=== PATIENT | male | born 1965 | race Caucasian/White ===

== ENCOUNTER 2018-02-23 13:57 | Outpatient (CLI) | payer BC ==
--- NOTE | 2018-02-23 16:03 | ULT ---
TESTICULAR ULTRASOUND: HISTORY: Testicular mass. TECHNIQUE: Real-time imaging of the right and left testes was performed. FINDINGS: The right testicle measures 3.6 and the left testicle 3.6 cm in length. There is a 3 mm cyst identif ied in the right testicle. Small bilateral hydroceles are present. The left epididymis is unremarkable in appearance. There is a large right epididymal cyst, measuring 1.7 x 2.2 cm. DOPPLER EVALUATION WITH SPECTRAL ANALYSIS Normal flow is shown to both testes and epididymal regions. IMPRESSION: 1. Large right epididymal cyst. 2. Small, 3 mm right testicular cyst. 3. Small bilateral hydroceles. POS: [facility]
== END 2018-02-23 13:58 | disposition home or self-care (01) ==
LOC: SCSULT 13:57
PROVIDERS: ATTEND Family Medicine
DX: N50.3 Cyst of epididymis (principal); N44.2 Benign cyst of testis; N43.3 Hydrocele, unspecified
CPT/HCPCS: 76870; 93976

== ENCOUNTER 2019-11-24 10:42 | Outpatient (CLI) | payer BC, OTHER ==
[2019-11-24 14:09] LABS: #Basophils 0.1 thou/uL (0.0-0.2); #Eosinphils 0.4 thou/uL (0.0-0.7); #Lymphocytes 3.1 thou/uL (1.20-3.40); #Monocytes 0.6 thou/uL (0.11-0.59); #Neutrophils 2.7 thou/uL (1.40-6.50); %Basophils 1.6 % (0.0-1.0); %Eosinophils 5.9 % (0.0-10.0); %Lymphocytes 44.5 % (21.0-51.0); %Monocytes 9.2 % (0.0-10.0); %Neutrophils 38.8 % (42.0-75.0); Hemoglobin 15.4 g/dL (14.0-18.0); Mean Corpuscular HGB CONC 33.3 g/dL (32.0-36.0); Mean Corpuscular Hemoglobin 31.2 pg (27.0-31.0); Mean Corpuscular Volume 93.7 fL (78.0-98.0); Platelet Count 233 thou/uL (130-400); RBC Distribution Width 11.7 % (11.5-14.5); Red Blood Cell (RBC) Count 4.94 mill/uL (4.70-6.10)
[2019-11-24 14:31] LABS: Anion Gap 10 mmol/L (10-20); BUN (Urea Nitrogen) 14 mg/dL (8.4-25.7); Calc. Creatinine Clearance 0 mL/min (70-130); Calcium 9.1 mg/dL (7.8-10.44); Carbon Dioxide 28 mmol/L (22-29); Chloride 105 mmol/L (98-107); Estimated GFR-MDRD Greater than 90; Glucose 99 mg/dL (70-105); Potassium 4.2 mmol/L (3.5-5.1); Sodium 139 mmol/L (136-145)
[2019-11-25 13:18] LABS: SARS-CoV-2 MS2 Positive; SARS-CoV-2 N Gene Negative; SARS-CoV-2 S Gene Negative; SARS-CoV-2 by NAA Not Detected (NotDetected); SARS-CoV-2 orf1ab Negative
== END 2019-11-24 10:43 | disposition home or self-care (01) ==
LOC: LABBT 10:42
PROVIDERS: ATTEND Surgery
DX: Z01.812 Encounter for preprocedural laboratory examination (principal); Z20.828 Contact with and (suspected) exposure to other viral communicable diseases; K60.3 Anal fistula
CPT/HCPCS: 80048; 85025; 87635; U0003

== ENCOUNTER 2021-05-25 08:19 | Outpatient (CLI) | payer BC ==
[2021-05-25 11:23] LABS: #Eosinphils 0.1 10x3/uL (0.0-0.5); #Monocytes 0.6 10x3/uL (0.0-1.1); %Basophils 0.6 % (0.0-2.0); %Eosinophils 1.4 % (0.0-6.0); %Lymphocytes 40.7 % (18.0-47.0); %Monocytes 9.8 % (0.0-10.0); %Neutrophils 46.9 % (40.0-75.0); Hemoglobin 15.1 g/dL (13.5-17.5); Mean Corpuscular HGB CONC 34.3 g/dL (32.0-36.0); Mean Corpuscular Hemoglobin 31.8 pg (27.0-33.0); Mean Corpuscular Volume 92.6 fl (81.2-95.1); Platelet Count 282 10x3/uL (150-450); RBC Distribution Width 12.8 % (11.5-14.5); Red Blood Cell (RBC) Count 4.75 10x6/uL (4.32-5.72); White Blood Cell (WBC) Count 6.4 10x3/uL (3.5-10.5)
[2021-05-25 17:37] LABS: SARS-CoV-2 PCR by NAA Not Detected (NotDetected)
== END 2021-05-25 08:20 | disposition home or self-care (01) ==
LOC: LABBT 08:19
PROVIDERS: ATTEND Surgery
DX: Z01.818 Encounter for other preprocedural examination (principal); K60.3 Anal fistula; Z20.822 Contact with and (suspected) exposure to COVID-19
CPT/HCPCS: 85025; 93005; 93010; U0003; U0005

== ENCOUNTER 2021-05-30 05:48 | Day surgery (SDC) | payer BC ==
[2021-05-24 10:55] VITALS: BMI 30.4
[2021-05-30] MEDS ORDERED: Methylene Blue 50 MG/10 ML AMPUL ONE (08:33)
[2021-05-30] MEDS ORDERED: Bacitracin Zinc Ointment 30 gm TUBE ONE (08:33)
[2021-05-30] MEDS ORDERED: Xylocaine 1% w/ Epi 1:100K 10 ML VIAL ONE (08:33)
[2021-05-30] MEDS ORDERED: Bupivacaine PF 0.5% 30 ML VIAL ONE (08:33)
[2021-05-30] MEDS ORDERED: Midazolam HCl 2 mg/2 ml Vial ONE ×2 (08:51→08:53)
[2021-05-30] MEDS ORDERED: Sodium Chloride 0.9% 100 ML ONE (08:53)
[2021-05-30] MEDS ORDERED: cefOXitin 2 GM VIAL ONE (08:53)
[2021-05-30] MEDS ORDERED: Fentanyl 250 MCG/5 ML VIAL ONE ×2 (08:53→10:00)
[2021-05-30] MEDS ORDERED: PROPOFOL 200 MG/20 ML VIAL ONE (09:01)
[2021-05-30] MEDS ORDERED: Dexamethasone 20 MG/5 ML VIAL ONE (09:01)
[2021-05-30] MEDS ORDERED: Ondansetron PF 4 MG/2 ML Vial ONE (09:01)
[2021-05-30] MEDS ORDERED: Lidocaine 1% PF 5 ML VIAL ONE (09:01)
[2021-05-30] MEDS ORDERED: Ketorolac Tromethamine 30 MG/ML VIAL ONE (09:53)
== END 2021-05-30 11:20 | disposition home or self-care (01) ==
LOC: SDC 05:48
PROVIDERS: ATTEND Surgery
PROC: 0H88XZZ Division of Buttock Skin, External Approach (ICD-10-PCS; principal; 2021-05-30)
DX: K60.3 Anal fistula (principal); M19.90 Unspecified osteoarthritis, unspecified site; Z79.899 Other long term (current) drug therapy
CPT/HCPCS: J0694; J1100; J1885; J2250; J2405; J2704; J3010; J3490; Q9968; S0020

== ENCOUNTER 2021-11-27 09:19 | Outpatient (CLI) | payer BC | END 2021-11-27 09:20 | disposition home or self-care (01) | LOC: SCSRAD 09:19 | PROVIDERS: ATTEND Family Medicine | DX: R05.3 Chronic cough (principal); U09.9 Post COVID-19 condition, unspecified | CPT/HCPCS: 71046 ==